=== PATIENT | female | born 1960 | race African-American/Black ===

== ENCOUNTER 2021-04-09 12:06 | Emergency (ER) | payer SELFPAY ==
[~2021-04-09] VITALS: Ht 152.4 cm; Wt 64.0 kg
[2021-04-09] MEDS ORDERED: IBUPROFEN 600MG TABLET PO ONE (13:45)
[2021-04-09 14:05] VITALS: BP 134/76
[2021-04-09] MEDS ORDERED: ACET-2708 MT (14:10)
[2021-04-09] MEDS ORDERED: IBUP-2028 MT (14:10)
== END 2021-04-09 14:33 | disposition home or self-care (01) ==
LOC: ER 12:06
DX: K08.89 Other specified disorders of teeth and supporting structures (principal); F32.9 Major depressive disorder, single episode, unspecified
CPT/HCPCS: 99282